=== PATIENT | female | born 1995 | race Hispanic/Latino ===

== ENCOUNTER 2020-07-18 14:43 | Inpatient (IN) | payer BC, OTHER ==
[~2020-07-18 14:43] MED LIST: Lidocaine 1% PF 5 ML VIAL ONE; PROPOFOL 200 MG/20 ML VIAL ONE; Succinylcholine Chloride 20 MG/ML 10 ml SYRINGE FS ONE
[2020-07-18] MEDS ORDERED: Ibuprofen 800 MG TAB ONE (15:11)
[2020-07-18] MEDS ORDERED: Acetaminophen 500 MG TAB ONE (15:11)
[2020-07-18 15:47] LABS: Hemoglobin 14.3 g/dL (12.0-16.0); Mean Corpuscular HGB CONC 34.4 g/dL (32.0-36.0); Mean Corpuscular Volume 95.8 fL (78.0-98.0); Mean Platelet Volume 7.7 fL (7.4-10.4); Platelet Count 346 thou/uL (130-400); RBC Distribution Width 12.4 % (11.5-14.5); Red Blood Cell (RBC) Count 4.33 mill/uL (4.20-5.40); White Blood Cell (WBC) Count 43.4 thou/uL (4.8-10.8)
[2020-07-18] MEDS ORDERED: Iopamidol-370 76% 500 ML 1 ML ONE (15:52)
[2020-07-18 15:53] LABS: Bacteria/HPF 4+ HPF (None Seen); Bilirubin Negative (Negative); Blood, Urine 1+ (Negative); Clarity Extra Turbid (Clear); Glucose, Urine (Dipstick) 50 mg/dL (Negative); Ketone, Urine 10 mg/dL (Negative); Leukocyte 500 Leu/uL (Negative); Nitrite Negative (Negative); Protein, Urine (Dipstick) 100 mg/dL (Neg-Trace); Specific Gravity, Urine 1.026 (1.002-1.036); Squamous Epithelial 21-50 HPF (0-3); Transitional Epithelial 0-3 HPF (None Seen); WBC/HPF Greater than 50 HPF (0-3); pH, Urine 5.5 (5.0-9.0)
[2020-07-18 16:04] LABS: Band 43 % (5-11); Lymphocytes 1 % (21-51); MDiff Complete? YES; Monocytes 4 % (0-10); Neutrophil 51 % (42-75); Platelet Morphology Comment Appears Adequate; Polychromasia SLIGHT = 2-3 cells (100X) (0-2/hpf); Reactive Lymphocytes 1 % (0-10); Reflex for Review?? YES
[2020-07-18] MEDS ORDERED: Cefepime 2 GM VIAL ONE (16:04)
--- NOTE | 2020-07-18 16:05 | RAD ---
PORTABLE CHEST: 07/18/20 HISTORY: Syncopal episode at home. Heart size and mediastinum are within normal limits. The lungs are clear of any infiltrates. No signi ficant bony findings. IMPRESSION: No active intrathoracic disease. POS: OFF
[2020-07-18 16:09] LABS: ALT (SGPT) 30 U/L (8-55); AST (SGOT) 16 U/L (5-34); Albumin 4.1 g/dL (3.5-5.0); Alkaline Phosphatase 58 U/L (40-110); Anion Gap 19 mmol/L (10-20); BUN (Urea Nitrogen) 18 mg/dL (7.0-18.7); Bilirubin, Total 0.9 mg/dL (0.2-1.2); Calc. Creatinine Clearance 0 mL/min (70-130); Calcium 9.3 mg/dL (7.8-10.44); Carbon Dioxide 23 mmol/L (22-29); Chloride 99 mmol/L (98-107); Estimated GFR-MDRD 37; Globulin 3.6 g/dL (2.4-3.5); Glucose 213 mg/dL (70-105); Potassium 3.7 mmol/L (3.5-5.1); Protein, Total 7.7 g/dL (6.0-8.3); Sodium 137 mmol/L (136-145)
[2020-07-18 16:27] LABS: Pregnancy Test - Urine (BHCG) Negative (Negative); Pregu Control Background? CLEAR/WHITE (CLR/WHITE); Pregu Control Bar Appear? YES (CONTROL BAR); Specific Gravity 1.026 (1.002-1.036)
--- NOTE | 2020-07-18 17:09 | CT ---
CT ABDOMEN AND PELVIS PERFORMED WITH INTRAVENOUS CONTRAST ENHANCEMENT: 07/18/20 HISTORY: Fever, chills, diffuse pain, not feeling well. COMPARISON: 12/14/16 exam. The lung bases are clear. There are diffuse fatty changes of the liver which measures approximately 1 9.5 cm in length. The spleen is within normal limits. Pancreas and gallbladder regions are unremarka ble. Right and left adrenal glands are normal. Right and left kidneys are normal in size. There is a sligh tly more wedge shaped area of hypodensity seen along the medial cortex of the right kidney. There is right sided hydronephrosis and hydroureter related to a distal right ureteral calculus measuring in t he 6 mm range located just below the level of the pelvic brim. There is a punctate nonobstructing low er pole right renal calculus. There is very minimal perinephric fat stranding. Slightly altered atten uation of the right kidney as compared to the left is probably on the basis of the obstruction but co uld indicate an underlying pyelonephritis. No significant periaortic or mesenteric adenopathy. CT OF PELVIS PERFORMED WITH CONTRAST ENHANCEMENT: 07/18/20 Follicles seen involving the left adnexa. No pelvic lymphadenopathy or mass. The appendix is normal. IMPRESSION: 1. Mild right sided hydronephrosis and hydroureter related to a 6 to 7 mm calculus located just below the level of the pelvic brim, several centimeters above the right ureterovesical junction. In a ddition, there is some areas of altered attenuation within the right kidney which could indicate an u nderlying pyelonephritis. Some of this may just be related to the obstructing causing this appearance . There is not a significant degree of perinephric fat stranding. 2. Punctate nonobstructing lower pole right renal calculus also incidentally noted. 3. Diffuse fatty change of the liver. POS: OFF
[2020-07-18 17:19] LABS: SARS-CoV-2 NAA Rapid Test Not Detected (NotDetected)
[2020-07-18] MEDS ORDERED: Iothalamate Meglumine 60% 50 ML VIAL FS ONE (17:28)
[2020-07-18] MEDS ORDERED: Vancomycin HCl 1.75 GM in Sodium Chloride 0.9% 500 ML IVPB SCH (17:30)
[2020-07-18] MEDS ORDERED: Fentanyl 100 MCG/2 ML VIAL ONE (17:31)
[2020-07-18] MEDS ORDERED: Midazolam HCl 2 mg/2 ml Vial ONE (17:31)
[2020-07-18] MEDS ORDERED: Ketamine 50 MG/ML (10ML VIAL) ONE (17:32)
[2020-07-18] MEDS ORDERED: Phenylephrine 10 MG/ML VIAL ONE (17:32)
--- NOTE | 2020-07-18 18:19 | RAD ---
RIGHT RETROGRADE UROGRAM: 07/18/20 HISTORY: Severe sepsis, hematuria. Distal right ureteral calculus. Right ureteral stent placement. COMPARISON: CT abdomen and pelvis on 11/18/19. FINDINGS/IMPRESSION: Two intraoperative fluoroscopic images of the abdomen are obtained. Images demonstrate a guide wire i n place in the right renal collecting system with evidence of mild to moderate right hydronephrosis. Residual contrast is seen in the left 3renal collecting system and partially imaged urinary bladder. Correlation with intraoperative findings is recommended. POS: KIMBERLY
[2020-07-18] MEDS ORDERED: Morphine 2 MG/ML VIAL SLOW IVP PRN (18:28)
[2020-07-18] MEDS ORDERED: HYDROcodone/Acetaminophen 5/325 mg Tablet PO PRN ×2 (18:28)
[2020-07-18] MEDS ORDERED: Bisacodyl 10 MG SUPP PR PRN (18:28)
[2020-07-18] MEDS ORDERED: Oxybutynin 5 MG TAB PO PRN (18:28)
[2020-07-18] MEDS ORDERED: Morphine 4 MG/ML VIAL SLOW IVP PRN (18:28)
[2020-07-18] MEDS ORDERED: Ondansetron PF 4 MG/2 ML Vial IVP PRN (18:28)
[2020-07-18] MEDS ORDERED: Mag-Al 1200 mg/1200 mg/30 ML UDCUP PO PRN (18:28)
[2020-07-18] MEDS ORDERED: diphenhydrAMINE 50 MG/ML VIAL IVP PRN (18:28)
[2020-07-18] MEDS ORDERED: Dextrose 50% Abboject 50 ML SYRINGE SLOW IVP PRN (18:31)
[2020-07-18] MEDS ORDERED: Insulin Regular 300 UNITS/3 ML VIAL SC PRN (18:31)
[2020-07-18] MEDS ORDERED: Dextrose 5% in Water 1,000 ML IV PRN (18:31)
--- NOTE | 2020-07-18 18:42 | PDOC.HHP ---
Hospitalist HPI - History of Present Illness Right flank pain History of Present Illness: This is a 24-year-old female patient with a history of type 2 diabetes mellitus who presented with 2-week history of progressive right flank pain. She notes that for the past couple of weeks she has experienced right flank pain which was initially mild. Over the past 3 days though this has become progressively worse. Today she woke up at [place] to use the bathroom and felt so weak that she almost passed out. Monday bro she came to the ED for further evaluation. She noted subjective fevers, chills headache and dizziness. She denies any chest pain, cough sore throat or shortness of breath. She took Advil at home which initially helped but briefly. On presentation blood pressure was 96/59 with heart rate 127, respiration rate 20 saturation 95 on room air. Labs showed a WBC of 43.4 with 43 bands, lactic acid was 5.4, urinalysis showed turbid urine with 500 leukocyte esterase, bacteria 4+ and negative nitrites. CT abdomen was done which showed mild right-sided hydronephrosis and hydroureter with 67 mm calculus pelvic brim. Also noted right pyelonephritis and perinephric stranding. She also had diffuse fatty liver. Chest x-ray showed no acute intrathoracic process. She was started on IV fluids 3 L bolus normal saline, vancomycin, cefepime and ibuprofen. Nephrology was consulted and she wa s taken to the OR for stent placement. After procedure urologist recommend changing antibiotics to vancomycin and Zosyn. Hospitalist ROS - Review of Systems Constitutional: reports: fever, chills, weakness Respiratory: denies: cough, dry, shortness of breath, SOB with excertion Cardiovascular: denies: chest pain, palpitations, orthopnea, paroxysmal noc. dyspnea Gastrointestinal: reports: abdominal pain. denies: nausea, vomiting, diarrhea, constipation Genitourinary: denies: dysuria, frequency, hematuria Neurological: denies: weakness, numbness, incoordination Hospitalist History - Past Medical History Endocrine: reports: Diabetes - Past Surgical History Other Surgical History: None of significance. - Social History Smoking Status: Smokes 0-10 cigs daily Alcohol: reports: None Drugs: reports: none Living Situation: With Family - Exam General Appearance: awake alert General - other findings: Morbidly obese ENT: normocephalic atraumatic, no oropharyngeal lesions, moist mucosa Neck: supple, no JVD Heart: RRR, no murmur, no gallops, no rubs Respiratory: no wheezes, no rales, no ronchi, normal chest expansion Gastrointestinal: soft, non-distended, normal bowel sounds, tender to palpation (On right flank. No rebound tenderness or guarding) Extremities: no cyanosis, no clubbing, no edema Neurological: cranial nerve grossly intact, no weakness Psychiatric: normal affect, A&O x 3 Hospitalist Results - Labs Result Diagrams: 07/18/20 15:31 07/18/20 15:31 Lab results: WBC 43.4 thou/uL (4.8-10.8) H* 07/18/20 15:31 Hgb 14.3 g/dL (12.0-16.0) 07/18/20 15:31 Hct 41.5 % (36.0-47.0) 07/18/20 15:31 MCV 95.8 fL (78.0-98.0) 07/18/20 15:31 Plt Count 346 thou/uL (130-400) 07/18/20 15:31 Band Neuts % (Manual) 43 % (5-11) H 07/18/20 15:31 Sodium 137 mmol/L (136-145) 07/18/20 15:31 Potassium 3.7 mmol/L (3.5-5.1) 07/18/20 15:31 Chloride 99 mmol/L (98-107) 07/18/20 15:31 Carbon Dioxide 23 mmol/L (22-29) 07/18/20 15:31 BUN 18 mg/dL (7.0-18.7) 07/18/20 15:31 Creatinine 1.72 mg/dL (0.6-1.1) H 07/18/20 15:31 Glucose 213 mg/dL (70-105) H 07/18/20 15:31 Lactic Acid 5.4 mmol/L (0.5-2.2) H* 07/18/20 15:32 Calcium 9.3 mg/dL (7.8-10.44) 07/18/20 15:31 Total Bilirubin 0.9 mg/dL (0.2-1.2) 07/18/20 15:31 AST 16 U/L (5-34) 07/18/20 15:31 ALT 30 U/L (8-55) 07/18/20 15:31 Alkaline Phosphatase 58 U/L (40-110) 07/18/20 15:31 Troponin I 0.012 ng/mL (< 0.028) 07/18/20 15:31 Serum Total Protein 7.7 g/dL (6.0-8.3) 07/18/20 15:31 Albumin 4.1 g/dL (3.5-5.0) 07/18/20 15:31 Urine Ketones 10 mg/dL (Negative) A 07/18/20 15:30 Urine Blood 1+ (Negative) A 07/18/20 15:30 Urine Nitrite Negative (Negative) 07/18/20 15:30 Ur Leukocyte Esterase 500 Bebeto/uL (Negative) A 07/18/20 15:30 Urine RBC 11-20 HPF (0-3) A 07/18/20 15:30 Urine WBC Greater than 50 HPF (0-3) A 07/18/20 15:30 Ur Squamous Epith Cells 21-50 HPF (0-3) A 07/18/20 15:30 Urine Bacteria 4+ HPF (None Seen) A 07/18/20 15:30 Hospitalist H&P A/P - Plan Plan: This is a 24-year-old female patient with a history of diabetes mellitus type 2 presenting with right flank pain noted to have nephrolithiasis with pyelonephritis is currently status post left ureteral stent placement. Severe sepsis Elevated lactate, tachycardia, tachypnea with MARCIN Secondary to right pyelonephritis with nephrolithiasis Received 30 mils per KG IV fluids Received vancomycin and cefepime in the ED Lactate 5.2we will trend Close monitoring in IMCU.. Right pyelonephritis Secondary to obstructing nephrolithiasis She is currently status post renal stent placement We will continue antibiotic management on vancomycin and Zosyn Urology following. Right nephrolithiasis of hydronephrosis She is currently status post stenting Appreciate urology input. MARCIN Likely prerenal in the setting of sepsis We will monitor BMP following hydration Diabetes mellitus type 2 Start correctional dosing insulin Hold Metformin for now. Diffuse fatty liver Noted on CT Long-term management of diabetes mellitus and obesity. Morbid obesity To be managed on outpatient basis DVT prophylaxisSCD CODE STATUSfull code
[2020-07-18] MEDS: Famotidine/PF 20 mg/2ml Vial SLOW IVP SCH (20:13)
[2020-07-18] MEDS: Docusate 100 MG CAP PO SCH (20:13)
[2020-07-18] MEDS: Sodium Chloride 0.9% 1,000 ML IV SCH (20:15)
[2020-07-18 20:41] LABS: Lactic Acid 1.6 mmol/L (0.5-2.2)
[2020-07-18 21:56] VITALS: BMI 36.9
--- NOTE | 2020-07-18 22:19 | CON ---
DATE OF CONSULTATION: 07/18/2020 PRIMARY CARE PHYSICIAN: Natacha Hackett. REASON FOR CONSULT: Right ureteral calculi, sepsis. HISTORY OF PRESENT ILLNESS: Rosie is a 24-year-old morbidly obese female, Tamazight-speaking, who presented to the emergency room with 2-week history of right flank pain. She states that she passed a tiny kidney stone couple of weeks ago, was quite small. She denies prior surgical intervention for kidney stones. She states that she saw Dr. Vieira few months ago, advised regarding renal ultrasound; however, never followed up. 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 Only medical history is diabetes, she is on metformin. Emergent assessment was provided, she presented with white count of 43,000 with 43 bands, temperature of 103. Tachycardic at 170. She has been provided cefepime, vancomycin, Tylenol, and ibuprofen and currently despite her clinical history, appears to be comfortable. She does relate subjective chills for the last few days. Denies history of gross hematuria. PAST MEDICAL HISTORY: Includes diabetes. PAST SURGICAL HISTORY: Tonsillectomy, adenoidectomy, and dental surgery. ALLERGIES: NO KNOWN DRUG ALLERGIES. 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 Denies tobacco or illicit drug use. REVIEW OF SYSTEMS: Ten-point review of systems as above, otherwise noncontributory. PHYSICAL EXAMINATION: VITAL SIGNS: T-max 103.3. Presenting blood pressure 128/78; however, has decreased to 96/59 and pulse 162. Most recent heart rate is 150. GENERAL: The patient appears to be in no acute distress. HEENT: Grossly unremarkable. HEART: Regular rate. Tachycardic. LUNGS: Clear. ABDOMEN: Morbidly obese. No rigidity. No rebound. No flank tenderness. EXTREMITIES: No cyanosis, clubbing, or edema. NEUROLOGIC: No gross focal deficits. SKIN: There is no evidence of lesions or ecchymosis or hematoma of concern. NEUROLOGIC: No gross focal deficits. PSYCHIATRIC: Appears to be appropriate and intact. Musculoskeletal: Symmetric muscle strength no deficit PERTINENT IMAGING AND LABS: White count of 43,000, hemoglobin 14, platelet 346, and 43 bandemia. Baseline creatinine is 0.6 to 0.8. She presents with creatinine of 1.7. Lactic acid elevated at 5.4. Urinalysis demonstrates positive epithelials; however, there is 4+ bacteria, greater than 50 wbc's, 11 to 20 rbc's, and 500 leukocytes. Blood culture and urine culture have been obtained. CT of the abdomen and pelvis with IV contrast on July 18, 2020, demonstrating mild right hydronephrosis and hydroureter due to 7 mm mid ureteral calculi per my review at the level of inferior SI joint. There is also a right lower pole punctate renal calcific density. There is a wedge-shaped hypodensity in the right medial cortex consistent with pyelonephritis. Left kidney is grossly unremarkable. VCUG obtained in June 2004 with no evidence of reflux. Normal VCUG. IMPRESSION AND PLAN: Rosie is a pleasant 24-year-old female with history of diabetes, presents with history of two weeks of right flank pain. CT demonstrates right mid ureteral calculi with hydronephrosis. Clinical history and labs consistent with sepsis. The patient has been n.p.o., taken emergently for cysto, right stent. Patient advised regarding his any labs concerning for septic parameters, critical presentation. She has been fully informed regarding indications, ureteroscopy, laser lithotripsy at a later date. Job ID: [id number] MTDD
--- NOTE | 2020-07-18 22:27 | OP ---
DATE OF PROCEDURE: 07/18/2020 PREOPERATIVE DIAGNOSES: 1. Right mid ureteral calculi at the level of inferior SI joint, 6 to 7 mm with hydronephrosis. 2. Right pyelonephritis. 3. Septic parameters. POSTOPERATIVE DIAGNOSES: 1. Right mid ureteral calculi at the level of inferior SI joint, 6 to 7 mm with hydronephrosis. 2. Right pyelonephritis. 3. Septic parameters. PROCEDURES PERFORMED: Cystoscopy, right 6 x 24 double-J ureteral stent. ANESTHESIA: General. COMPLICATIONS: None apparent. DISPOSITION: To recovery room in guarded condition. INDICATIONS FOR PROCEDURE AND HISTORY: Rosie is a 24-year-old pleasant female, with a history of diabetes, presented to the emergency room with a 2- week history of right flank pain, she presented today due to worsening fever and chills. She was found to have a temperature of 103.3 with white count of 43,000 and bandemia. Renal insufficiency of creatinine 1.7. She was provided cefepime and vancomycin from the emergency room and is taken emergently to the OR for right cysto, stent placement. Risks and complications of procedure were reviewed with her in detail, including, but not limited to, bleeding, pain, infection, injury to adjacent organs, ureteral, renal, kidney injury, sepsis discussed with her in detail and all questions answered to her satisfaction, desired to proceed. She has been fully informed that definitive surgery for ureteroscopy will be performed at a later date. DESCRIPTION OF PROCEDURE: After an informed consent was signed, patient was taken to the operating room, placed in a dorsal lithotomy position with the genital area prepped and draped in the usual surgical sterile fashion. A 21-Divehi cystoscope was utilized for cystoscopy, which demonstrated normal bladder mucosa. There was some mild debris within the bladder. The UOs are normal orthotopic position. An open-ended catheter was placed into the right UO as that she has persistent nephrogram phase with contrast down to the level of the mid ureter, not beyond the stone. Therefore, the ureter in the kidney was opacified. A 0.035 Sensor wire was able to be passed into the right upper pole without difficulty. A 6 x 24 double-J ureteral stent, was placed uneventfully. However, there was some resistance passing the stone at the level of the stone, which I was able to bypass. An 18-Divehi 10 mL Pedersen catheter was placed to gravity demonstrating mando pink-tinged urine. She will need to be admitted for close observation at minimum today IMCU, due to her septic parameters. Continue broad-spectrum antibiotic therapy. Job ID: [id number] MTDD
--- NOTE | 2020-07-18 23:10 | PDOC.EVN ---
Event Note - Event Note Event Note: Nursing called. patient hypotensive SBP 70s, believes she recieved 1-2 liters IVF since admission. She has No history CHF. Will give 1L NS bolus. Discussed with Dr. Azar Moran.
[2020-07-18] MEDS ORDERED: Sodium Chloride 0.9% 1,000 ML IV SCH (23:15)
[2020-07-18] MEDS: Piperacillin/Tazobactam 3.375 GM in Sodium Chloride 0.9% 100 ML IVPB SCH (23:18)
[2020-07-18] MEDS ORDERED: Azithromycin 500 MG in Sodium Chloride 0.9% 250 ML 250 ML IVPB SCH (23:45)
[2020-07-18] MEDS ORDERED: Dexamethasone 6 MG in Sodium Chloride 0.9% 50 ML IVPB SCH (23:59)
[2020-07-18] MEDS ORDERED: Piperacillin/Tazobactam 3.375 GM in Sodium Chloride 0.9% 100 ML IVPB SCH (23:59)
[2020-07-19] MEDS ORDERED: Vancomycin 1 GM in Premix Bag 1 BAG IVPB SCH (03:00)
[2020-07-19] MEDS: Sodium Chloride 0.9% 1,000 ML IV SCH ×4 (03:10→16:44)
[2020-07-19 05:24] LABS: Anion Gap 13 mmol/L (10-20); BUN (Urea Nitrogen) 16 mg/dL (7.0-18.7); Calc. Creatinine Clearance 107 mL/min (70-130); Calcium 7.4 mg/dL (7.8-10.44); Carbon Dioxide 23 mmol/L (22-29); Chloride 108 mmol/L (98-107); Estimated GFR-MDRD 57; Glucose 168 mg/dL (70-105); Potassium 3.7 mmol/L (3.5-5.1); Sodium 140 mmol/L (136-145)
[2020-07-19] MEDS: Piperacillin/Tazobactam 3.375 GM in Sodium Chloride 0.9% 100 ML IVPB SCH ×4 (05:47→23:44)
[2020-07-19 06:24] LABS: Band 44 % (5-11); Hemoglobin 11.2 g/dL (12.0-16.0); Lymphocytes 5 % (21-51); MDiff Complete? YES; Mean Corpuscular HGB CONC 33.2 g/dL (32.0-36.0); Mean Corpuscular Hemoglobin 32.7 pg (27.0-31.0); Mean Corpuscular Volume 98.6 fL (78.0-98.0); Metamyelocyte 2 % (0-0); Monocytes 3 % (0-10); Myelocyte 3 % (0-0); Neutrophil 43 % (42-75); Platelet Count 266 thou/uL (130-400); RBC Distribution Width 12.5 % (11.5-14.5); Red Blood Cell (RBC) Count 3.41 mill/uL (4.20-5.40)
[2020-07-19] MEDS ORDERED: Dexamethasone 6 MG in Sodium Chloride 0.9% 50 ML IVPB SCH (09:00)
[2020-07-19] MEDS ORDERED: FLU VACC QS2020-21(6MOS UP)/PF 60 MCG/0.5 ML SYRINGE IM ONE (09:00)
[2020-07-19] MEDS: Famotidine/PF 20 mg/2ml Vial SLOW IVP SCH ×2 (09:57→20:24)
[2020-07-19] MEDS: Docusate 100 MG CAP PO SCH ×3 (09:57→20:29)
[2020-07-19] MEDS ORDERED: Sodium Chloride 0.9% 1,000 ML IV SCH (10:15)
--- NOTE | 2020-07-19 10:58 | PDOC.HOSPP ---
- Subjective Encounter Date: 07/19/20 Encounter Time: 10:56 Subjective: Patient was seen and examined in bed. She had intermittently low blood pressures overnight requiring a bolus. Heart rate still remains high otherwise she has no new complaints. She denies any chest pain or shortness of breath. She has mild pain in the right flank area - Objective Vital Signs & Weight: Vital Signs (12 hours) Temp 07/19/20 07:32 97.6 F 07/19/20 03:37 97.6 F Weight Weight 202 lb Most Recent Monitor Data Heart Rate from ECG 114 NIBP 92/62 NIBP BP-Mean 72 Respiration from ECG 34 SpO2 97 I&O: 07/18/20 07/19/20 07/20/20 06:59 06:59 06:59 Intake Total 3480 Output Total 650 Balance 2830 Result Diagrams: 07/19/20 03:43 07/19/20 03:43 Additional Labs: Accuchecks 07/19/20 07/19/20 07/18/20 10:40 05:50 20:32 POC Glucose 206 H 126 H 115 H EKG Reviewed by me: Yes (Monitoring shows sinus tachycardia) Hospitalist ROS - Medication Medications: Active Medications Generic Name Dose Route Start Last Admin Trade Name Freq PRN Reason Stop Dose Admin Hydrocodone Bitart/Acetaminophen 1 tab 07/18/20 18:28 07/19/20 09:58 Hydrocodone/Acetaminophen 5/325 Mg Tablet PO 1 tab Q4H PRN Administration Moderate Pain (4-6) Docusate Sodium 100 mg 07/18/20 21:00 07/19/20 09:57 Docusate 100 Mg Cap PO Not Given BID RAMONA Famotidine 20 mg 07/18/20 21:00 07/19/20 09:57 Famotidine/Pf 20 Mg/2ml Vial SLOW IVP 20 mg Q12HR RAMONA Administration Sodium Chloride 1,000 mls @ 150 mls/hr 07/18/20 18:45 07/19/20 09:56 Normal Saline 0.9% IV 1,000 mls .Q6H40M RAMONA Administration Piperacillin Sod/Tazobactam 100 mls @ 200 mls/hr 07/18/20 23:00 07/19/20 10:45 Sod 3.375 gm/ Sodium Chloride IVPB 100 mls 0500,1100,1700,2300 RAMONA Administration - Exam General Appearance: awake alert Neck: no JVD, no lymphadenopathy Heart: RRR (Tachycardic), no murmur, no gallops Respiratory: no wheezes, no rales, no ronchi Gastrointestinal: soft, non-tender, non-distended, tender to palpation (Mild in right flank area) Hosp A/P - Plan 24-year-old female patient 2 diabetes mellitus admission on account of right pyelonephritis with urosepsis. Urosepsissecondary to right pyelonephritis Resolving WBC reducing however bands to remain high. However having intermittently low blood pressures and tachycardia Continue Vanco and Zosyn No growth yet on blood cultures Urine cultures growing mixed organisms Continue IV fluids Urology followingappreciate Sinus tachycardiain the setting of sepsis Improving but still heart rate in the 110s and 120s. We will give her a bolus to improve blood pressure and hopefully reduce the heart rate Continue monitor Diabetes mellitus Continue on correctional insulin Glucose monitoring. Nephrolithiasisright hydronephrosis She is status post stent placement Lithotripsy at a later date Etiology for VT prophylaxisstart Lovenox today
[2020-07-19] MEDS ORDERED: traMADol HCl 50 MG TAB PO PRN (11:09)
[2020-07-19] MEDS ORDERED: Acetaminophen 500 MG TAB PO PRN (11:09)
--- NOTE | 2020-07-19 12:06 | PRG ---
DATE OF SERVICE: 07/19/2020 SUBJECTIVE: The patient has mild flank pain; however, this is minimal. Requesting Tylenol. She has no nausea, vomiting, or chills. feels better since stent placement. OBJECTIVE: VITAL SIGNS: Temperature is 97, blood pressure remains low at 97/62, heart rate variable from 135 to 114. I's and O's 3480 in and 650 out, she is positive 2.8 L. She has been fluid bolused by hospitalist overnight due to labile blood pressure. GENERAL: She is in no acute distress. HEART: Tachycardic. LUNGS: Clear. ABDOMEN: Soft. No CVA tenderness. No rigidity. No rebound. EXTREMITIES: No cyanosis, clubbing, or edema. LABORATORY DATA: White count on admission was 43 and currently 33, hemoglobin 11, platelet 266, and 44 bands, which she presented on admission as well. Renal function did improve from creatinine of 1.7 to 1.1. Urine culture preliminary is mixed. Blood culture negative thus far. IMPRESSION AND PLAN: Ms. Drake is a 24-year-old female with history of diabetes, presented with right mid ureteral calculi, with septic parameters. Her blood cultures are negative. Her blood pressure remains labile. Therefore, I would recommend she stays in the IMCU for now. Continue indwelling Pedersen catheter for strict I's and O's. Await final urine culture. Informed the patient that we will treat her stone in a few weeks after convalescence from presenting sepsis. Continue strict I's and O's. check hemoglobin A1c. , cont SSI, Iv atb Job ID: [id number] [facility]
[2020-07-19] MEDS: Vancomycin 1.5 GRAM/300 ML BAG 1.5 GM in Premix Bag 1 BAG IVPB SCH (16:42)
--- NOTE | 2020-07-19 20:38 | RAD ---
CHEST ONE VIEW: History: Fluid overload FINDINGS: Heart size is within normal limits. Pulmonary vessels do not appear engorged. There is some minimal a telectatic change in the right base. There is slight elevation to the right hemidiaphragm. IMPRESSION: Minimal subsegmental atelectasis right lung base. POS: OFF
[2020-07-20] MEDS: Sodium Chloride 0.9% 1,000 ML IV SCH ×4 (03:23→22:44)
[2020-07-20] MEDS: Piperacillin/Tazobactam 3.375 GM in Sodium Chloride 0.9% 100 ML IVPB SCH ×4 (05:46→22:44)
[2020-07-20 09:06] LABS: #Basophils 0.1 thou/uL (0.0-0.2); #Eosinphils 0.1 thou/uL (0.0-0.7); #Lymphocytes 1.5 thou/uL (1.20-3.40); #Monocytes 0.5 thou/uL (0.11-0.59); #Neutrophils 15.3 thou/uL (1.40-6.50); %Basophils 0.6 % (0.0-1.0); %Eosinophils 0.3 % (0.0-10.0); %Lymphocytes 8.7 % (21.0-51.0); %Monocytes 2.8 % (0.0-10.0); %Neutrophils 87.6 % (42.0-75.0); Mean Corpuscular HGB CONC 31.7 g/dL (32.0-36.0); Mean Corpuscular Hemoglobin 31.6 pg (27.0-31.0); Mean Corpuscular Volume 99.8 fL (78.0-98.0); Mean Platelet Volume 8.2 fL (7.4-10.4); Platelet Count 288 thou/uL (130-400); RBC Distribution Width 12.5 % (11.5-14.5); White Blood Cell (WBC) Count 17.4 thou/uL (4.8-10.8)
[2020-07-20 09:23] LABS: Anion Gap 10 mmol/L (10-20); BUN (Urea Nitrogen) 10 mg/dL (7.0-18.7); Calc. Creatinine Clearance 132 mL/min (70-130); Calcium 8.1 mg/dL (7.8-10.44); Carbon Dioxide 23 mmol/L (22-29); Chloride 108 mmol/L (98-107); Estimated GFR-MDRD 72; Glucose 167 mg/dL (70-105); Potassium 3.3 mmol/L (3.5-5.1); Sodium 138 mmol/L (136-145)
[2020-07-20] MEDS: Famotidine/PF 20 mg/2ml Vial SLOW IVP SCH ×2 (10:01→21:38)
[2020-07-20] MEDS: Docusate 100 MG CAP PO SCH ×2 (10:06→21:38)
[2020-07-20] MEDS ORDERED: Electrolyte Replacement Protoc 1 EACH EACH FS SCH (11:15)
--- NOTE | 2020-07-20 11:20 | PDOC.HOSPP ---
- Subjective Encounter Date: 07/20/20 Encounter Time: 11:20 Subjective: Patient was seen and examined in bed. She feels somewhat better has no complaints She denies any chest pain, shortness of breath or abdominal pain. - Objective Vital Signs & Weight: Vital Signs (12 hours) Temp 07/20/20 07:38 98.4 F 07/20/20 03:55 98.0 F 07/19/20 23:48 97.7 F Weight Weight 202 lb Most Recent Monitor Data Heart Rate from ECG 98 NIBP 109/75 NIBP BP-Mean 86 Respiration from ECG 14 SpO2 99 I&O: 07/19/20 07/20/20 07/21/20 06:59 06:59 06:59 Intake Total 3480 3740 1200 Output Total 650 1375 1100 Balance 2830 2365 100 Result Diagrams: 07/20/20 08:54 07/20/20 08:53 Additional Labs: Accuchecks 07/20/20 07/20/20 07/19/20 10:50 05:55 20:27 POC Glucose 129 H 84 114 H 07/19/20 16:44 POC Glucose 135 H Radiology Reviewed by me: Yes (Chest x-ray overnight showed no congestion) EKG Reviewed by me: Yes (Telemetry shows normal sinus rhythm) Hospitalist ROS - Medication Medications: Active Medications Generic Name Dose Route Start Last Admin Trade Name Freq PRN Reason Stop Dose Admin Acetaminophen 1,000 mg 07/19/20 11:09 07/19/20 20:23 Acetaminophen 500 Mg Tab PO 1,000 mg Q6H PRN Administration Mild Pain (1-3) Docusate Sodium 100 mg 07/18/20 21:00 07/20/20 10:06 Docusate 100 Mg Cap PO Not Given BID RAMONA Famotidine 20 mg 07/18/20 21:00 07/20/20 10:01 Famotidine/Pf 20 Mg/2ml Vial SLOW IVP 20 mg Q12HR RAMONA Administration Sodium Chloride 1,000 mls @ 125 mls/hr 07/18/20 18:45 07/20/20 05:46 Normal Saline 0.9% IV 1,000 mls .Q8H RAMONA Administration Vancomycin HCl 1.5 gm/ Device 300 mls @ 200 mls/hr 07/19/20 15:00 07/19/20 16:42 IVPB 300 mls 1500 RAMONA Administration Piperacillin Sod/Tazobactam 100 mls @ 200 mls/hr 07/18/20 23:00 07/20/20 10:01 Sod 3.375 gm/ Sodium Chloride IVPB 100 mls 0500,1100,1700,2300 RAMONA Administration Insulin Human Regular 0 units 07/18/20 18:31 07/19/20 12:32 Insulin Regular 300 Units/3 Ml Vial SC 4 units .MODERATE SLIDING SC PRN Administration Moderate Correctional Scale - Exam General Appearance: awake alert Heart: RRR, no murmur, no gallops Respiratory: no wheezes, no rales, no ronchi Gastrointestinal: soft, non-tender, non-distended, normal bowel sounds Extremities: no cyanosis, no clubbing Neurological: cranial nerve grossly intact, normal sensation to touch Musculoskeletal: normal tone, normal strength Psychiatric: normal affect, A&O x 3 Hosp A/P - Plan 24-year-old female patient with type 2 diabetes mellitus admission on account of right pyelonephritis with urosepsis. She is status post stent placement. Made significant progress in IMCU. Possible transfer him out today Urosepsissecondary to right pyelonephritis Sepsis resolved Continue antibiotics of Vanco and Zosyndiscussed de-escalation with urology Urology followingappreciate Sinus tachycardia Resolved Continue monitoring Diabetes mellitus A1c 6.0 Continue on correctional insulin Glucose monitoring. Nephrolithiasisright hydronephrosis She is status post stent placement Lithotripsy at a later date Etiology for VT prophylaxisstart Lovenox CODE STATUS full code
[2020-07-20] MEDS: Vancomycin 1.5 GRAM/300 ML BAG 1.5 GM in Premix Bag 1 BAG IVPB SCH (13:48)
[2020-07-20 14:23] LABS: Vancomycin, Trough 3.1 ug/mL
--- NOTE | 2020-07-20 14:32 | PRG ---
DATE OF SERVICE: 07/20/2020 SUBJECTIVE: The patient continues to feel better. OBJECTIVE: VITAL SIGNS: Stable. She is afebrile for 24 hours. Blood pressure is improving. Last blood pressure is 115/80, heart rate 85. I's and O's 1200 in and 1100 out. GENERAL: The patient is in no acute distress. HEART: Regular rate. LUNGS: Clear. ABDOMEN: Morbidly obese. Protuberant. No CVA tenderness appreciated. : Demonstrates catheter draining yellow mando-tinged urine. EXTREMITIES: No cyanosis, clubbing, or edema. PERTINENT LABORATORY DATA: Admitting white count was 43,000; this morning at 17,000; resolution of bandemia; hemoglobin stable. Renal function has also improved from admitting creatinine of 1.7, creatinine today 0.97. Blood sugars running 200 to 129. Hemoglobin A1c is 6.0 on this admission. Blood culture negative. Preliminary urine culture demonstrates mixed skin enteric wilman. IMPRESSION AND PLAN: Roise is a 24-year-old female with; 1. History of obesity, diabetes with adequate hemoglobin A1c, presented for right flank pain, postop day #2 status post cysto, right stent. 2. Sepsis. Parameters improving. Blood pressure is improved as well as resolution of tachycardia. Chest x-ray demonstrates no evidence of fluid overload. The patient can be transitioned to a regular floor. Anticipate she will most likely be discharged tomorrow for blood pressure remains stable with elective ureteroscopy and laser lithotripsy at a later date. May transition to a regular floor. Discontinue Pedersen as her blood pressure is improved. Job ID: [id number] [facility]
[2020-07-20] MEDS ORDERED: Enoxaparin Sodium 40 MG/0.4 ML SYRINGE SC SCH (21:00)
[2020-07-21] MEDS ORDERED: Vancomycin 1 GM in Premix Bag 1 BAG IVPB SCH (03:00)
[2020-07-21 04:14] LABS: #Basophils 0.1 thou/uL (0.0-0.2); #Eosinphils 0.1 thou/uL (0.0-0.7); #Lymphocytes 3.7 thou/uL (1.20-3.40); #Monocytes 0.6 thou/uL (0.11-0.59); #Neutrophils 7.6 thou/uL (1.40-6.50); %Basophils 1.1 % (0.0-1.0); %Eosinophils 0.9 % (0.0-10.0); %Lymphocytes 30.2 % (21.0-51.0); %Monocytes 4.9 % (0.0-10.0); %Neutrophils 62.9 % (42.0-75.0); Hemoglobin 10.5 g/dL (12.0-16.0); Mean Corpuscular Hemoglobin 32.1 pg (27.0-31.0); Mean Corpuscular Volume 97.3 fL (78.0-98.0); Mean Platelet Volume 8.3 fL (7.4-10.4); Platelet Count 272 thou/uL (130-400); RBC Distribution Width 12.4 % (11.5-14.5); Red Blood Cell (RBC) Count 3.28 mill/uL (4.20-5.40); White Blood Cell (WBC) Count 12.1 thou/uL (4.8-10.8)
[2020-07-21] MEDS: Piperacillin/Tazobactam 3.375 GM in Sodium Chloride 0.9% 100 ML IVPB SCH ×2 (04:59→12:43)
--- NOTE | 2020-07-21 08:26 | PRG ---
DATE OF SERVICE: 07/21/2020 SUBJECTIVE: The patient is feeling well. Denies chills, fever. OBJECTIVE: VITAL SIGNS: Stable at 98, 65, 16, 98, 117/81. Urine output is clear. I's and O's 1230 in, 1440 out. GENERAL: Patient is in no acute distress. HEART: Regular rate. LUNGS: Clear. ABDOMEN: Soft, nontender, nondistended. No rigidity. No rebound. No CVA tenderness. GENITOURINARY: Urine output clear. PERTINENT LABORATORY DATA: White count on admission 43,000, currently decreased to 12 with no significant bandemia . Renal function has also normalized to creatinine of 0.97. Admitting creatinine of 1.7. Blood culture final, negative x2. Urine culture from the emergency room demonstrates mixed wilman. I did repeat a urine culture from her indwelling Pedersen catheter yesterday and that is pending. IMPRESSION AND PLAN: Rosie is a 24-year-old female with history of diabetes. Recent A1c demonstrates adequate control of her diabetes, as her A1c is 6.0. The patient presented with septic parameters due to fever, severe leukocytosis, and bandemia; postop day #3 status post cysto, right ureteral stent. As the patient is clinically improved, may discharge the patient today. Her Pedersen catheter has been removed. I did place orders for discharge medications of Azo, Colace, Levaquin 500 mg 1 p.o. b.i.d. for 14 days, oxybutynin 10 mg, tramadol p.r.n. Please make sure the prescription is sent to the patient's pharmacy. followup appointment with me in chart for July 30 at 9:15 p.m. The patient is to arrive about 20 minutes prior to appointment as she is new to our office. Instructions for discharge provided to the patient. Job ID: [id number] MTDD
[2020-07-21] MEDS ORDERED: Electrolyte Replacement Protoc 1 EACH EACH FS SCH (08:30)
[2020-07-21] MEDS: Famotidine/PF 20 mg/2ml Vial SLOW IVP SCH (09:42)
[2020-07-21] MEDS: Docusate 100 MG CAP PO SCH (09:42)
[2020-07-21 11:39] VITALS: BP 113/76; TEMP 98.7
--- NOTE | 2020-07-21 20:19 | PDOC.DS.DS ---
Provider - Provider Date of Admission: 07/18/20 18:10 Date of Discharge: 07/21/20 Admitting Provider: Mendez Fermin MD Consultations:: Urology (Yelena Campos) Primary Care Physician: [facility] Course - Hospital Course Hospital Course: This is a 24-year-old female patient who presented on the day of admission on account of ongoing right flank pain, nausea vomiting and weakness. At presentation initial evaluation of CT scan abdomen noted obstructing nephrolithiasis with pyelonephritis and hydronephrosis. Initial management for sepsis secondary to pyelonephritis was started on antibiotics and urology was consulted. She was sent to the OR and had a right ureteral stent placed with vigorous fluid therapy and ongoing antibiotics. She was monitored in IMCU for a couple of days and then transition out. On the day of discharge she was generally stable, had minimal pain and no complaints. She was discharged on oral levofloxacin and she would follow-up with urology for further nephrolithiasis management. Pertinent Studies: CT scan abdomen and pelvis: Slight altered attenuation of right kidney as compared to the left probably indicating underlying pyelonephritis. mild right-sided hydronephrosis and hydroureter related to 67 mm calculus, Punctate obstructing lower pole right renal calculus Diffuse fatty liver Resuscitation Status: 07/18/20 20:43 Resuscitation Status Routine Resuscitation Status: FULL: Full Resuscitation - Labs Lab Results: 07/21/20 03:18 07/20/20 08:53 Abnormal Lab Results - Last 48 hrs 07/20/20 08:53: Potassium 3.3 L, Chloride 108 H 07/20/20 08:54: WBC 17.4 H, RBC 3.80 L, MCV 99.8 H, MCH 31.6 H, MCHC 31.7 L, Neutrophils % 87.6 H, Lymphocytes % 8.7 L, Neutrophils # 15.3 H 07/21/20 03:18: WBC 12.1 H, RBC 3.28 L, Hgb 10.5 L, Hct 31.9 L, MCH 32.1 H, Baso phils % 1.1 H, Neutrophils # 7.6 H, Lymphocytes # 3.7 H, Monocytes # 0.6 H Microbiology - Entire Visit 07/20/20 19:39 Urine colbert catheter Urine Culture - Preliminary NO GROWTH AT 12 HOURS 10/24/20 15:36 Venous blood - Left Arm Blood Culture - Preliminary NO GROWTH AT 48 HOURS 07/18/20 15:31 Venous blood - Right Arm Blood Culture - Preliminary NO GROWTH AT 48 HOURS 07/18/20 15:30 Urine voided Urine Culture - Final 07/18/20 15:30 Nasal swab Influenza Types A,B Direct EIA - Final - Physical Exam Vitals: Vital Signs (12 hours) Temp Pulse Resp BP Pulse Ox 07/21/20 11:38 98.7 F 79 18 113/76 99 Weight Weight 202 lb Most Recent Monitor Data Heart Rate from ECG 95 NIBP 127/87 NIBP BP-Mean 100 Respiration from ECG 17 SpO2 97 Physical Exam: The patient was seen and examined on the day of discharge. General: In no acute distress. Respiratory system: Air entry adequate bilaterally. CVS: S1-S2 present and normal. Number medical service. Abdomen: Full soft no tenderness. No rebound tenderness or guarding. Extremities: No edema Plan - Discharge Medications Prescriptions: Phenazopyridine HCl [Azo Standard] 97.5 mg PO TID #30 tablet Docusate [Colace] 100 mg PO BID #30 cap Levofloxacin [Levaquin] 500 mg PO DAILY #14 tab Oxybutynin Chloride [Oxybutynin Chloride ER] 10 mg PO DAILY #30 tab traMADol HCl [Ultram] 50 mg PO Q6H PRN #30 tab PRN Reason: Moderate Pain (4-6) Home Medications: Medication Instructions Recorded Confirmed Type metFORMIN [Glucophage] 1 tab PO BID 07/18/20 07/18/20 History Docusate [Colace] 100 mg PO BID #30 cap 07/21/20 Rx Levofloxacin [Levaquin] 500 mg PO DAILY #14 tab 07/21/20 Rx Oxybutynin Chloride [Oxybutynin 10 mg PO DAILY #30 tab 07/21/20 Rx Chloride ER] Phenazopyridine HCl [Azo Standard] 97.5 mg PO TID #30 tablet 07/21/20 Rx traMADol HCl [Ultram] 50 mg PO Q6H PRN #30 tab 07/21/20 Rx Allergies: No Known Allergies Allergy (Verified 07/18/20 21:48) - Discharge Instructions Activity:: Activity as Tolerated Nourishment:: Heart Healthy Diet - Follow up Plan Referrals: [facility] [Primary Care Provider] - 2-3 Weeks () Yelena Cortes DO [Active] - 07/30/20 9:15 am (bring bottles of all rx) Disposition: HOME
== END 2020-07-21 14:53 | disposition home or self-care (01) | DRG 854 ==
LOC: ERS 14:43 → SDC/OP 17:41 → IMCU/EMU 18:10 → ONC 07-20 20:10
PROVIDERS: ADMIT Student in an Organized Health Care Education/Training Program; ATTEND Student in an Organized Health Care Education/Training Program
PROC: 0T768DZ Dilation of Right Ureter with Intraluminal Device, Via Natural or Artificial Opening Endoscopic (ICD-10-PCS; principal; 2020-07-18)
DX: A41.9 Sepsis, unspecified organism (principal); N17.9 Acute kidney failure, unspecified; N13.2 Hydronephrosis with renal and ureteral calculous obstruction; E11.9 Type 2 diabetes mellitus without complications; R00.0 Tachycardia, unspecified; E66.01 Morbid (severe) obesity due to excess calories; K76.0 Fatty (change of) liver, not elsewhere classified; R65.20 Severe sepsis without septic shock; Z90.49 Acquired absence of other specified parts of digestive tract; Z79.84 Long term (current) use of oral hypoglycemic drugs; Z20.828 Contact with and (suspected) exposure to other viral communicable diseases; Z68.36 Body mass index [BMI] 36.0-36.9, adult
CPT/HCPCS: 36415; 36416; 71045; 74177; 74420; 80048; 80053; 80202; 81003; 81015; 81025; 83036; 83605; 84443; 84484; 85025; 85060; 87040; 87086; 87804; 90471; 90662; 93005; G0008; J0692; J1650; J1815; J2250; J2370; J2543; J2704; J3010; J3370; J3490; J7030; Q9967; S0028; U0002

== ENCOUNTER 2020-07-31 06:25 | Outpatient (CLI) | payer BC ==
[2020-07-31 09:45] LABS: Hemoglobin 13.9 g/dL (12.0-16.0); Mean Corpuscular HGB CONC 32.9 G/DL (32.0-36.0); Mean Corpuscular Hemoglobin 31.7 PG (27.0-33.0); Mean Corpuscular Volume 96.1 fl (80.0-100.0); Mean Platelet Volume 9.4 fl (7.4-10.4); Platelet Count 616 10x3/uL (130-400); RBC Distribution Width 13.1 % (11.5-14.5); Red Blood Cell (RBC) Count 4.39 10x6/uL (3.90-5.20); White Blood Cell (WBC) Count 10.6 10x3/uL (4.5-11.0)
[2020-07-31 09:52] LABS: BHCG - Serum Negative (NEGATIVE)
[2020-07-31 09:53] LABS: Pregs Control Background? CLEAR/WHITE (CLR/WHITE); Pregs Control Bar Appear? YES (CONTROL BAR)
[2020-07-31 10:02] LABS: PTT 28.7 sec (22.0-33.0); Prothrombin Time 10.8 sec (9.5-12.1)
[2020-07-31 10:34] LABS: Anion Gap 18 mmol/L (10-20); BUN (Urea Nitrogen) 9 mg/dL (7.0-18.7); Calc. Creatinine Clearance 0 mL/min (70-130); Calcium 9.7 mg/dL (7.8-10.44); Carbon Dioxide 25 mmol/L (22-29); Chloride 100 mmol/L (98-107); Estimated GFR-MDRD Greater than 90; Glucose 123 mg/dL (70-105); Potassium 5.1 mmol/L (3.5-5.1); Sodium 138 mmol/L (136-145)
[2020-07-31 17:40] LABS: SARS-CoV-2 MS2 Positive; SARS-CoV-2 N Gene Negative; SARS-CoV-2 S Gene Negative; SARS-CoV-2 by NAA Not Detected (NotDetected); SARS-CoV-2 orf1ab Negative
== END 2020-07-31 06:26 | disposition home or self-care (01) ==
LOC: LABBT 06:25
PROVIDERS: ATTEND Urology
DX: Z01.812 Encounter for preprocedural laboratory examination (principal); N20.1 Calculus of ureter; Z20.828 Contact with and (suspected) exposure to other viral communicable diseases
CPT/HCPCS: 80048; 84703; 85027; 85610; 85730; 87635; U0003

== ENCOUNTER 2020-08-05 08:18 | Day surgery (SDC) | payer BC ==
[2020-08-04 11:00] VITALS: BMI 36.6
[2020-08-05] MEDS ORDERED: Lidocaine 1% PF 5 ML VIAL ONE (09:10)
[2020-08-05] MEDS ORDERED: Rocuronium Bromide 10 MG/ML (10ML VIAL) ONE (09:10)
[2020-08-05] MEDS ORDERED: Glycopyrrolate 0.2 MG/ML 5 ML SYRINGE ONE (09:10)
[2020-08-05] MEDS ORDERED: Metoclopramide HCl 10 MG/2 ML VIAL ONE (09:10)
[2020-08-05] MEDS ORDERED: PROPOFOL 200 MG/20 ML VIAL ONE (09:10)
[2020-08-05] MEDS ORDERED: Dexamethasone 20 MG/5 ML VIAL ONE (09:10)
[2020-08-05] MEDS ORDERED: Albuterol Sulfate HFA (OR ONLY) ONE (09:10)
[2020-08-05] MEDS ORDERED: Ondansetron PF 4 MG/2 ML Vial ONE (09:10)
--- NOTE | 2020-08-05 09:15 | RAD ---
EXAM: XR Abdomen 1 View/KUB PROVIDED CLINICAL HISTORY: Preoperative evaluation. Right-sided ureteral calculus. COMPARISON: CT abdomen and pelvis on 07/18/2020 and retrograde urogram on 07/18/2020 FINDINGS: Right ureteral stent is noted in place with proximal portion overlying the superior pole right renal collecting system and most distal portion overlying the expected location of the superolateral aspect of the urinary bladder. The distal pigtail is not formed on the stent. The distal right ureter al calculus is visualized at the level of the lower aspect right sacroiliac joint adjacent to the ureteral stent. No suspicious calcifications are seen overlying the left renal collecting system or the expected loca tion of the left ureter. Bowel gas pattern is nonspecific. Osseous structures have a normal appearance. IMPRESSION: Right ureteral calculus at the level of the lower aspect right sacroiliac joint with right ureteral s tent in place.
[2020-08-05] MEDS ORDERED: cefTRIAXone\\ROCEPHIN 2 GM VIAL ONE (10:04)
[2020-08-05] MEDS ORDERED: Sodium Chloride 0.9% 100 ML ONE (10:05)
[2020-08-05] MEDS ORDERED: Fentanyl 100 MCG/2 ML VIAL ONE (11:16)
[2020-08-05] MEDS ORDERED: Famotidine/PF 20 mg/2ml Vial ONE (11:16)
[2020-08-05] MEDS ORDERED: Meperidine HCl/PF 25 MG/ML VIAL SLOW IVP PRN (12:04)
[2020-08-05] MEDS ORDERED: Ondansetron HCl/PF 4 MG/2 ML Vial IVP PRN (12:04)
[2020-08-05] MEDS ORDERED: Promethazine HCl 25 MG/ML VIAL SLOW IVP PRN (12:04)
[2020-08-05] MEDS ORDERED: Promethazine HCl 25 MG/ML VIAL IM PRN (12:04)
[2020-08-05] MEDS ORDERED: SUGAMMADEX SODIUM 200 MG/2 ML VIAL ONE (12:17)
[2020-08-05] MEDS ORDERED: HYDROcodone/Acetaminophen 5/325 mg Tablet ONE (12:45)
[2020-08-05] MEDS ORDERED: Phenazopyridine HCl 100 MG TAB ONE (12:47)
[2020-08-05] MEDS ORDERED: Oxybutynin 5 MG TAB ONE (12:47)
--- NOTE | 2020-08-05 12:51 | RAD ---
EXAM: XR IVP Retrograde PROVIDED CLINICAL HISTORY: Ureteral stent removal COMPARISON: AP abdominal radiograph on 08/05/2020 at 0906 hours. FINDINGS/IMPRESSION: Single fluoroscopic AP image of the abdomen is submitted. Right ureteral stent is again noted in plac e and stable in position. Calculus overlying the distal right ureter at the level of the inferior right sacroiliac joint is again seen. No other interval change. Correlation with intraoperative findi ngs is recommended.
--- NOTE | 2020-08-06 13:57 | OP ---
DATE OF PROCEDURE: 08/05/2020 PREOPERATIVE DIAGNOSES: 1. A 24-year-old female with history of sepsis, hydronephrosis due to a 7 mm right ureteral calculi at the level of the SI joint. 2. Non-obstructing right lower pole punctate renal lithiasis. POSTOPERATIVE DIAGNOSES: 1. A 24-year-old female with history of sepsis, hydronephrosis due to a 7 mm right ureteral calculi at the level of the SI joint. 2. Non-obstructing right lower pole punctate renal lithiasis. PROCEDURES PERFORMED: Cystoscopy, right ureteroscopy, laser lithotripsy, basket extraction of stone debris, 6 x 26 double ureteral stent with Dangler taped to patient's pubic symphysis. INTRAOPERATIVE FINDINGS: 1. Persistent right mid SI ureteral calculi. 2. Migration of the right ureteral stent into the level of the intramural ureter. SPECIMENS: Stone for chemical analysis. INDICATIONS FOR THE PROCEDURE AND HISTORY: Rosie is a 24-year-old female with history of diabetes adequately controlled, whom have I seen as an emergent consultation on July 18, as she presented with history of fever of 103, had significant leukocytosis, bandemia. She underwent emergent right stent placement and presents today for ureteroscopy, laser lithotripsy. Her urine culture even on arrival was negative, this is likely due to broad-spectrum antibiotic provided prior to obtaining a formal urine culture. Her repeat urine culture is negative, and she presents for definitive treatment. Risks and complications of the procedure were reviewed with her in detail including, but not limited to: Bleeding; pain; infection; injury to adjacent organs; ureter, renal, or kidney injury; possible stricture formation were discussed with her in detail, and she desired to proceed. DESCRIPTION OF PROCEDURE: After an informed consent was signed, the patient was taken to the operating room, placed in a dorsal lithotomy position with the genital area prepped and draped in the usual surgical sterile fashion. A 21-Tristanian cystoscope was utilized for cystoscopy. A preoperative KUB demonstrated persistent stone nidus and the stent did appear to have migrated proximally. At this time, the bladder was entered and it did confirm that the stent did migrate just proximal to the intramural ureter. Using a rigid ureteroscope, I was able to easily intubate the right UO and see the stone, see the distal end of the ureteral stent migrated. With the back-loading big biopsy instrument that was back-loaded to the rigid ureteroscope, we were able to gently pass this to the level of the migrated stent and retrieve successfully. The stent was removed to the level of the meatus, and a 0.035 Sensor wire was passed through the indwelling ureteral stent and the stent completely removed. At this time, we transitioned again back to the ureteroscope and using a 265-micron laser fiber at 1.0 joules, we laser lithotripsied the stone into multiple tiny fragments. Those were amendable to be basket extracted, extracted and sent for chemical analysis. She tolerated the procedure well and a 6 x 26 double ureteral stent was passed with distal tail left on Dangler as there was endoscopic clearance. Even though she is only 5 feet 2 inches, a 6 x 24 had migrated; therefore, a 6 x 26 was placed with good coil in the bladder and kidney. She will follow up with me next week for stent pull on Dangler. She is advised to continue broad-spectrum antibiotic therapy until followup appointment. Job ID: [id number] MTDD
== END 2020-08-05 14:15 | disposition home or self-care (01) ==
LOC: SDC 08:18
PROVIDERS: ATTEND Urology
PROC: 0T768DZ Dilation of Right Ureter with Intraluminal Device, Via Natural or Artificial Opening Endoscopic (ICD-10-PCS; principal; 2020-08-05)
PROC: 0TC68ZZ Extirpation of Matter from Right Ureter, Via Natural or Artificial Opening Endoscopic (ICD-10-PCS; principal; 2020-08-05)
DX: N20.1 Calculus of ureter (principal); N10 Acute pyelonephritis; E11.9 Type 2 diabetes mellitus without complications; E66.01 Morbid (severe) obesity due to excess calories; Z68.36 Body mass index [BMI] 36.0-36.9, adult; Z79.84 Long term (current) use of oral hypoglycemic drugs
CPT/HCPCS: 74018; 74420; 82365; 88300; J0696; J1100; J2405; J2704; J2765; J3010; J3490; S0028

== ENCOUNTER 2020-11-06 13:52 | Outpatient (CLI) | payer BC ==
--- NOTE | 2020-11-06 14:14 | ULT ---
Renal sonogram HISTORY: Renal stones. COMPARISON: CT abdomen 07/18/2020. FINDINGS: Right kidney measures up to 11.4 cm length and the left 10.8 cm. Each has a normal appearan ce without mass, stone, or hydronephrosis. Urinary bladder shows no focal abnormalities. Volume measured at 57 cc. IMPRESSION : No abnormalities are demonstrated.
[2020-11-06 16:19] LABS: Bilirubin Negative (Negative); Blood, Urine Trace (Negative); Clarity Clear (Clear); Glucose, Urine (Dipstick) Greater than 1000 mg/dL (Negative); Ketone, Urine Trace mg/dL (Negative); Leukocyte 25 Leu/uL (Negative); Nitrite Negative (Negative); Protein, Urine (Dipstick) 20 mg/dL (Neg-Trace); RBC/HPF 0-3 HPF (0-3); Specific Gravity, Urine 1.023 (1.002-1.036); Urobilinogen Normal mg/dL (Less than 2)
[2020-11-06 16:23] LABS: Bacteria/HPF 1+ HPF (None Seen)
[2020-11-06 16:24] LABS: Urine Culture Reflex No No
[2020-11-06 16:33] LABS: Anion Gap 16 mmol/L (10-20); BUN (Urea Nitrogen) 10 mg/dL (7.0-18.7); Calc. Creatinine Clearance 0 mL/min (70-130); Calcium 9.7 mg/dL (7.8-10.44); Carbon Dioxide 28 mmol/L (22-29); Chloride 98 mmol/L (98-107); Glucose 227 mg/dL (70-105); Potassium 3.9 mmol/L (3.5-5.1); Sodium 138 mmol/L (136-145)
== END 2020-11-06 13:53 | disposition home or self-care (01) ==
LOC: BICULT 13:52
PROVIDERS: ATTEND Urology
DX: N20.1 Calculus of ureter (principal); N10 Acute pyelonephritis; R35.0 Frequency of micturition; E11.9 Type 2 diabetes mellitus without complications
CPT/HCPCS: 36415; 76770; 80048; 81001

== ENCOUNTER 2021-11-08 07:24 | Outpatient (CLI) | payer BC | END 2021-11-08 07:25 | disposition home or self-care (01) | LOC: CT 07:24 | PROVIDERS: ATTEND Urology | DX: N20.0 Calculus of kidney (principal); R16.0 Hepatomegaly, not elsewhere classified; K76.0 Fatty (change of) liver, not elsewhere classified | CPT/HCPCS: 74176 ==